=== PATIENT | female | born 1985 | race Caucasian/White ===

== ENCOUNTER 2016-04-04 10:23 | Day surgery (SDC) | payer OTHER ==
[~2016-04-04] VITALS: Ht 153.7 cm; Wt 55.0 kg
[~2016-04-04 10:23] MED LIST: CITA20TA PO; LANS15TA3 PO; Lactated Ringer's 1,000 ML IV ONE
[2016-04-04] MEDS ORDERED: Propofol 10,000 mCg/mL 20 mL Inj ONE (10:24)
[2016-04-04 11:01] VITALS: BP 113/69; PULSE 96; RESP 14; O2SAT 99
[2016-04-04] MEDS ORDERED: LORA0.5T PO (11:11)
--- NOTE | 2016-04-04 11:31 | PCM.HPANE ---
Patient Data Date of Service: Apr 04, 2016 Surgeon Admitting Provider: Attending Provider:Jc Aguillon MD Primary Care Physician:Miguel Art MD Other Provider:Jalen Hwang Anesthesia Reason for Visit Left Upper Quadrant Pain Ht/WT & BMI Height (Feet): 5 Height (Inches): 0.5 Weight (Kilograms): 55 Body Mass Index 23.00 Allergies Coded Allergies: Penicillins (Verified Allergy, Severe, RASH (TOLERATES CEFTIZOX), 02/01/16 ) Past Anesthesia History Anesthesia History: Denies:: Abnormal Airway, Anesthesia Reactions, Difficult Intubation, Fam Anesthesia Reaction, Fam Malignant Hypertherm, Malignant Hyperthermia Diabetes History Hx Diabetes?: No MRSA MRSA: No Medications Hypertension Medication: No Home Meds Incl Beta Stephany: No Reported Medications Lorazepam 0.5 Mg Tablet0.5 Mg PO TID PRN For Anxiety Ref 0 04/04/16 Lansoprazole ODT (Prevacid ODT)15 Mg [id number] Mg PO DAILY Ref 0 02/01/16 Citalopram Hydrobromide (Celexa)20 Mg Mixjkj51 Mg PO DAILY Ref 0 01/31/16 Discontinued Reported Medications Lorazepam 1 Mg Tablet1 Mg PO TID PRN For Anxiety #21 02/01/16 Discontinued Scripts Potassium Chloride 10 Meq Capsule.er10 Meq PO DAILY 10 Days Ref 0 TAKE WITH FOOD Prov:Mickey Anan DO 02/08/16 Ondansetron ODT (Zofran ODT)4 Mg Tablet4 Mg PO Q4H PRN For Nausea #20 TABLET Prov:Lito Souza DO 01/31/16 History History of ENT Problems?: Yes HEENT History: Positive for:: Sinus Problem Denies:: Abnormal Airway Cataracts Difficult Intubation Dysphagia Hearing Problem Hx of Heart Problems?: No Cardiovascular History: Denies:: Congestive Heart Failure Hypertension Hx of Respiratory Problem?: Yes Respiratory History: Denies:: Asthma COPD Chest Surgery Dyspnea Emphysema Hemoptysis Pneumonia (01/2016) Tuberculosis Hx Neurologic Problems?: No Neurological History: Denies:: CVA Hx of GI Problems?: No Gastrointestinal History: Positive for:: Diverticulitis Gastroesphageal Reflux Heartburn Hepatitis (fatty liver) Hiatal Hernia Liver Disease (ELEVATED ENZYMES) Denies:: Gall Bladder Disease Gastrointestinal Bleeding Rectal Bleeding Hx of Problems?: No Female Hx: Denies:: Currently Endometriosis Pelvic Inflammatory Musculoskeletal History: Denies:: Fibromyalgia Joint Replacement Hx of Psycho/Social Problems?: Yes Psycho Social History: Positive for:: Anxiety Hx Depression Denies:: Bipolar Disorder Suicide Attempt Hx Surgeries?: Yes (c sectionx2, appy) Hx Any Other Health Problems?: Yes Other History: Denies:: Cancer Hospitalization Thyroid Disease History Blood Transfusions: Denies:: Blood Transfuse Reaction Blood Transfusions Hx Diabetes: No Hx Alcohol Use: Yes (half a 5th of liquor per day until 01/14/16, glass of wine )Hx Substance Use: No Smoking Status: Former Smoker Have You Smoked inLast 12 mo: No Stop/Bang Treated for Sleep Apnea?: No Do You Have a CPAP Machine?: No S-Snoring: Do You Snore Loudly: No T-Tired: feel tired, fatigued: Yes O-Obsered: Observed not breath: No P-Blood Pressure: treated: No B- Body Mass Index > 35 kg/m2: No A- Age over 50: No N- Neck Large Circumference: No G- Gender Male: No ROBINSON Total Score: 1 ROBINSON Risk Assessment: Low Risk, <3 Yes Risk Assessment Category Category 1A: Patient has history of documented sleep apnea, and HAS NOT received any narcotic, sedative or anesthesia administration during this stay. Category 1B: Patient has history of documented sleep apnea, and HAS received any narcotic , sedative or anesthesia administration during this stay Category 2: Patient has SUSPECTED Obstructive Sleep Apnea, and HAS received any narcotic , sedative or anesthesia administration during this stay. Category 3: Patient has SUSPECTED Obstructive Sleep Apnea and HAS NOT received narcotic, sedative or anesthesia administration during this stay. Category 4: Outpatient in Procedural Areas with known sleep apnea or who screen positive for High Risk via the STOP/BANG questionnaire. Exam Exam Vital Signs Vital Signs Date Time Temp Pulse Resp B/P Pulse Ox O2 Delivery O2 Flow Rate FiO2 04/04/16 11:01 36.3 96 14 113/69 99 Room Air General Appearance: Alert, Oriented X3, Cooperative HEENT/AIRWAY: MP 2, Neck Movement (Full), Mouth Opening (Wide) Lungs: Clear to Auscultation, Normal Air Movement Heart: Regular Rate/Rhythm, Normal S1, Normal S2 Meds/Labs/Diagnostics Admission Meds Current Medications Lactated Ringer's (Lr) 1,000 ml @ 10 mls/hr Q24H ONCE IV Last administered on 04/04/16 11:18; Start 04/04/16 at 06:00; Stop 04/05/16 at 05:59 Lidocaine HCl (Xylocaine Viscous 2% Soln 15mL) 15 ml PRN ONCE PO Last administered on 04/04/16 11:18; Start 04/03/16 at 17:55; Stop 04/03/16 at 17:58 ; Status DC Plan Impression Patient chart reviewed, patient interviewed and anesthestic plan with risks, benefits, and alternatives discussed, and informed consent obtained. NPO Status: > 2 hours ASA Physical Status: ASA2 Mod Systemic Disease Anesthetic Plan: MAC Bene/Risks/Altern/Consents: Yes HP Complete Prior to Induction: Yes Mayank Skinner MD Apr 04, 2016 11:31
[2016-04-04 11:55] VITALS: BP 87/54; PULSE 86; RESP 14; O2SAT 99
--- NOTE | 2016-04-04 12:01 | PCM.ANEP1 ---
Post Anesthesia Phase 1 PACU Phase 1 Assessment Date of Service: Apr 04, 2016 Vital Signs Vital Signs Date Time Temp Pulse Resp B/P Pulse Ox O2 Delivery O2 Flow Rate FiO2 04/04/16 11:55 36.2 86 14 87/54 99 Room Air 04/04/16 11:01 36.3 96 14 113/69 99 Room Air Anesthetic Administered: MAC SINGLETARY's with Equal Strength: Yes Pain: No Nausea or Vomiting: No Oxygen Delivery: Room Air Lungs: Normal Air Movement Mayank Skinner MD Apr 04, 2016 12:01
[2016-04-04 12:04] VITALS: BP 92/57; PULSE 73; RESP 16; O2SAT 100
[2016-04-04 12:12] VITALS: BP 109/76; PULSE 77; RESP 16; O2SAT 95
--- NOTE | 2016-04-04 12:14 | PCM.ANEP2 ---
Post Anesthesia Evaluation ASA/CMS Post Anesthesia Date of Service: Apr 04, 2016 VS in Patient's Normal Range?: Yes Resp Stable; Airway Patent?: Yes CV Function & Hydration Stable: Yes Mental Status Recovered?: Yes Pain control Satisfactory?: Yes N/V Control Satisfactory?: Yes Mayank Skinner MD Apr 04, 2016 12:14
--- NOTE | 2016-04-05 13:47 | PATH ---
SURGICAL PATHOLOGY Attending Physician:Case Clayton CASE STATUS: Signed Out PATIENT NAME: ALEXYS LOUIS PID: [id number] : 1985 DATE COLLECTED:04/04/2016 19:42 SPECIMEN: Stomach, Antrum, Biopsy CLINICAL HISTORY: ANTRUM NODULE BIOPSY (SUBMUCOSAL) FINAL DIAGNOSIS: Biopsy Gastric Antrum Nodule: Focus of pancreatic acinar heterotopia, negative for atypia. ICD10 K31.89 GROSS DESCRIPTION: The specimen is received in one formalin filled container labeled with the patient's name, sublabeled "antrum nodule" and consists of a 0.3 x 0.3 x 0.2 CM portion of tissue. The specimen is entirely submitted in one cassette. 04/04/2016 [facility] ICD-9 CODES: CPT CODES: 1: 84033 Electronically Signed Out Jc Johns MD [facility] [address], [place] [address] Technical component performed at [facility], [facility] [address], [place], [address]
--- NOTE | 2016-04-11 11:49 | ENDO ---
[address] [address] ENDOSCOPY PROCEDURE PATIENT: ALEXYS LOUIS : 1985 MR#: [id number] ADMIT: 04/04/2016 JOB ID: [id number] PROCEDURE: Esophagogastroduodenoscopy with biopsies. INDICATIONS: A 30-year-old female with a history of pancreatitis and ongoing left upper quadrant pain, persistently abnormal lipase. Historically she had evidence of pancreatic heterotopia found on gastric biopsies from 2013. Repeat endoscopic examination is pursued. EQUIPMENT: Standard upper endoscope. SEDATION: Monitored anesthesia as provided by Dr. Mayank Skinner. COMPLICATIONS: None identified. PROCEDURE INFORMATION: After the risks and benefits were explained, written and verbal informed consent was obtained. The patient was brought into the endoscopy suite and placed into the left lateral decubitus position. Sedation was achieved using the above-stated medications with the addition of oxygen via nasal cannula. The scope was introduced into the mouth through the bite block and advanced under direct visualization to the second portion of the duodenum. The scope was slowly withdrawn to carefully examine the mucosa for any defects or lesions. Retroflexed views were accomplished in the stomach, the stomach was decompressed, and the scope removed the patient, who tolerated the procedure well. FINDINGS: 1. Duodenum: This is visually unremarkable from the bulb through to the second portion. 2. Stomach: No outlet obstruction. No mass lesions. There was a very subtle small antral nodule. This measured out to be perhaps somewhere in the 6 mm range and was sampled for histopathologic analysis. Otherwise, no significant abnormality was appreciated in the distal stomach. Retroflexed views from within the stomach were rather unremarkable. 3. Esophagus: The squamocolumnar junction correlated with the top of the gastric folds. There was a very subtle sliding hiatal hernia. No other pathology appreciated in the esophagus. ENDOSCOPIC DIAGNOSIS: 1. Subtle sliding hiatal hernia. 2. Small antral nodule-biopsied. RECOMMENDATIONS: 1. Await histopathology. 2. Continue low fat diet. COMMENT: Photographs from the case were used, along with the written notes taken at the time of the procedure, for today's dictation.
== END 2016-04-04 23:59 | disposition home or self-care (01) ==
LOC: END 10:23
PROVIDERS: ATTEND Internal Medicine Gastroenterology
DX: K44.9 Diaphragmatic hernia without obstruction or gangrene (principal); K31.89 Other diseases of stomach and duodenum; R10.12 Left upper quadrant pain; K21.9 Gastro-esophageal reflux disease without esophagitis; K57.30 Diverticulosis of large intestine without perforation or abscess without bleeding; F32.9 Major depressive disorder, single episode, unspecified; F41.9 Anxiety disorder, unspecified; Z87.891 Personal history of nicotine dependence
CPT/HCPCS: 43239; 88305; J7120